=== PATIENT | male | born 1955 | race Caucasian/White ===

== ENCOUNTER 2016-03-16 21:49 | Emergency (ER) | payer BC ==
[~2016-03-16] VITALS: Ht 182.9 cm; Wt 111.8 kg
[2016-03-16 21:59] VITALS: TEMP 36.5; Ht 182.9 cm; Wt 111.8 kg
[2016-03-16] MEDS ORDERED: SODIUM CHLORIDE 0.9% 1000ML 1,000 ML IV STA (22:21)
[2016-03-16] MEDS ORDERED: SODIUM CHLORIDE 0.9% 500ML 500 ML IV STA (22:21)
[2016-03-16] MEDS ORDERED: ONDANSETRON INJ 2 MG/ML 2 ML VIAL IV STA (22:21)
[2016-03-16] MEDS ORDERED: MoRPHine SULFATE 4 MG/ML 1 ML CARP\\VIAL IV STA (22:21)
[2016-03-16] MEDS ORDERED: OPTIRAY 320 IV PRN (22:30)
[2016-03-16 22:53] LABS: ISTAT CREATININE 0.9 mg/dl (0.6-1.3); ISTAT HEMOGLOBIN 13.9 g/dl (14.0-18.0); ISTAT IONIZED CALCIUM 1.18 mmol/l (1.12-1.32)
--- NOTE | 2016-03-16 22:54 | DIAGNOSTIC IMAGING REPORT ---
CHEST ONE VIEW PORTABLE CLINICAL HISTORY: Atypical chest pain COMPARISON STUDY: No previous studies for comparison. FINDINGS: The heart is borderline enlarged. There is no failure. There is no focal pulmonary consolidation. There are no pleural effusions.[ IMPRESSION: No active disease in the chest. Electronically signed by: Everardo Powell M.D. 03/16/2016 10:52 PM Dictated Date/Time: 03/16/2016 10:51 PM
[2016-03-16 23:10] LABS: BASO % 0.2 %; BASO ABS # 0.03 K/uL (0-0.2); COMPLETE YES; EOS % 2.6 %; IG% 0.2 %; LYMPH % 17.1 %; LYMPH ABS # 2.19 K/uL (1.2-3.4); MEAN CELL VOLUME 88.1 fL (80-100); MEAN CORPUSCULAR HEMOGLOBIN 30.8 pg (25-34); MEAN PLATELET VOLUME 9.6 fL (7.4-10.4); NEUT % 73.9 %; PLATELET COUNT 244 K/uL (130-400); RED BLOOD COUNT 4.54 M/uL (4.7-6.1); WHITE BLOOD COUNT 12.79 K/uL (4.8-10.8)
[2016-03-16] MEDS ORDERED: ALLO100T PO (23:13)
[2016-03-16] MEDS ORDERED: GLC/500 PO (23:14)
[2016-03-16] MEDS ORDERED: SIMV20TA2 PO (23:14)
[2016-03-16 23:25] LABS: ALT/SGPT 26 U/L (12-78); AST/SGOT 11 U/L (15-37); BLOOD UREA NITROGEN 15 mg/dl (7-18); BUN/CREATININE RATIO 14.9 (10-20); CALCIUM 8.7 mg/dl (8.5-10.1); CARBON DIOXIDE 26 mmol/L (21-32); CHLORIDE 104 mmol/L (98-107); GLUCOSE 159 mg/dl (70-99); POTASSIUM 3.9 mmol/L (3.5-5.1); SODIUM 140 mmol/L (136-145)
[2016-03-16 23:27] VITALS: O2SAT 96
[2016-03-16 23:30] LABS: ALKALINE PHOSPHATASE 43 U/L (45-117); CKMB/CK RATIO 1.2 (0-3.0)
[2016-03-16 23:31] LABS: INR 0.9 (0.9-1.1)
--- NOTE | 2016-03-16 23:53 | DIAGNOSTIC IMAGING REPORT ---
CT SCAN OF THE ABDOMEN AND PELVIS WITH IV CONTRAST CLINICAL HISTORY: Generalized abdominal pain status post colonoscopy. COMPARISON STUDY: No priors. TECHNIQUE: Following the IV administration of 116 cc of Optiray 320, CT scan of the abdomen and pelvis is performed from the lung bases to the proximal femora. Images are reviewed in the axial, sagittal, and coronal planes. IV contrast was administered without complication. Automated dose control exposure was utilized. CT DOSE: 818.53 mGy.cm FINDINGS: Lung bases: The heart is top normal in size and without pericardial effusion. There are scattered coronary artery calcifications. The lung bases are clear. Liver: The contrast-enhanced liver is normal in size, contour, and attenuation. There is no intrahepatic biliary ductal dilatation. The hepatic veins and portal veins are patent. Gallbladder: Calcified gallstones are identified. The gallbladder is otherwise normal in appearance. Spleen: Normal in size and attenuation. Pancreas: Unremarkable. Adrenal glands: Unremarkable. Kidneys: The contrast enhanced kidneys are normal in size and without hydronephrosis. The kidneys enhance symmetrically. Mild cortical scarring is present in the upper pole the right kidney. Abdominal vasculature: The abdominal aorta is normal in course and caliber. Bowel: The small bowel and colon are normal in course and caliber. There is mild to moderate colonic fecal retention. There is moderate to advanced diverticulosis of left colon. There is mild wall thickening and pericolonic infiltration seen involving the distal descending and sigmoid colon. The appearance could represent mild diverticulitis or possibly colitis. There is no evidence of abscess. Prominent pericolonic lymph nodes are seen adjacent to the sigmoid and measure up to 9 mm. The appendix is not identified and reported surgically absent. Peritoneum: There is no intraperitoneal free air or abdominal ascites. Lymphadenopathy: None. Pelvic viscera: The bladder is distended but grossly unremarkable. The prostate and seminal vesicles are normal as visualized. There are small bilateral fat-containing inguinal hernias. Skeletal structures: No lytic or blastic lesions are seen. IMPRESSION: 1. There is mild wall thickening and pericolonic infiltration seen involving the distal descending and sigmoid colon. Although there is significant diverticular disease involving the left colon, a nonspecific colitis is considered more likely due to the length of involvement. Mild acute diverticulitis is the top differential consideration. 2. There is no intraperitoneal free air or evidence of abscess. 3. Cholelithiasis. 4. Additional changes as above. Electronically signed by: Stuart Robles M.D. 03/16/2016 11:51 PM Dictated Date/Time: 03/16/2016 11:43 PM
[2016-03-17] MEDS ORDERED: CIPROFLOXACIN 400MG / 200ML D5W IV STA (00:55)
[2016-03-17] MEDS ORDERED: METRONIDAZOLE 500MG / 100ML NSS IV STA (00:55)
[2016-03-17] MEDS ORDERED: METRONIDAZOLE 250 MG TAB PO STA (02:14)
[2016-03-17] MEDS ORDERED: CIPROFLOXACIN 500MG HOME PACK PO ONE (02:15)
[2016-03-17] MEDS ORDERED: ONDANSETRON HOME PACK 4MG OD TAB PO ONE (02:15)
[2016-03-17] MEDS ORDERED: OXYCODONE IR HOME PACK PO ONE (02:15)
[2016-03-17] MEDS ORDERED: METR-163 PO (02:17)
[2016-03-17] MEDS ORDERED: CIPR1TAB10 PO (02:17)
[2016-03-17 02:36] VITALS: BP 123/63; PULSE 64; O2SAT 97
--- NOTE | 2016-03-17 05:43 | EMERGENCY ROOM VISIT NOTE ---
History First contact with patient: 22:16 Chief Complaint: ABDOMINAL PAIN Stated Complaint: SEVERE ABD PAIN, BLOATING, GAS History of Present Illness The patient is a 61 year old male who presents to the Emergency Room with complaints of nausea, heartburn, bloating and abdominal pain since 7 PM tonight. Patient colonoscopy this morning at 8:[address] Joy. He had a small polyp removed. This is routine health screening remained. Last endoscopy was 10 years ago and was normal. Colonoscopy did show diverticulosis. Patient describes the pain as bloating, ranging in severity and at 10 throughout the lower abdomen. Patient states earlier he had epigastric discomfort but this is now resolved. Patient denies chest pain, dyspnea, fever, chills, vomiting, black or blood in his stool. He did have one bowel movement today that was normal in color. No history GI bleeding in the past. Review of Systems See HPI for pertinent positives & negatives. A total of 10 systems reviewed and were otherwise negative. Past Medical/Surgical History Appendectomy, gout, hyperlipidemia Social History Smoking Status: Never Smoker Smokeless Tobacco Use: No Alcohol Use: occasionally Drug Use: none Marital Status: Housing Status: lives with family Current/Historical Medications Scheduled Allopurinol (Zyloprim), 100 MG PO DAILY Ciprofloxacin Hcl (Cipro), 500 MG PO BID Metformin Hcl (Glucophage), 500 MG PO BID Metronidazole (Flagyl), 500 MG PO TID Simvastatin (Zocor), 20 MG PO QPM Allergies Coded Allergies: No Known Allergies (Verified , 03/16/16) Physical Exam Vital Signs Date Time Temp Pulse Resp B/P Pulse Ox O2 Delivery O2 Flow Rate FiO2 03/17/16 02:36 64 18 123/63 97 03/17/16 02:35 64 18 123/63 97 Room Air 03/17/16 01:06 70 18 127/68 96 Room Air 03/16/16 23:27 96 Room Air 03/16/16 23:25 75 16 124/75 97 Room Air 03/16/16 21:59 36.5 66 18 144/89 97 Room Air Physical Exam VITALS: Vitals are noted on the nurse's note and reviewed by myself. Vital signs stable. GENERAL: Pleasant male, in no acute distress, nondiaphoretic, well-developed well-nourished. SKIN: The skin was without rashes, erythema, edema, or bruising. There is no tenting of the skin. Capillary reflex less than 2 seconds. HEAD: Normocephalic atraumatic. EARS: External auditory canals clear, tympanic membranes pearly branch without erythema or effusion bilaterally. EYES: Pupils equal round and reactive to light and accommodation. Conjunctivae without injection, sclerae without icterus. Extraocular movements intact. NOSE: Patent, turbinates without inflammation or discharge. MOUTH: Mucous membranes moist. Pharynx without erythema or exudate. Uvula midline. Airway patent. Tongue does not deviate. NECK: Supple without nuchal rigidity. No lymphadenopathy. No thyromegaly. Cervical spine is nontender. No JVD. HEART: Regular rate and rhythm LUNGS: Clear to auscultation bilaterally without wheezes, rales or rhonchi. No dullness to percussion. No retractions or accessory muscle use. ABDOMEN: Positive bowel sounds x 4. Normal tympanic percussion. Soft, tender to palpation lower abdomen, no CVA tenderness, without masses or organomegaly. Busby sign negative. No guarding or rebound tenderness. MUSCULOSKELETAL: No muscle atrophy, erythema, or edema noted. NEURO: Patient was alert and oriented to person place and time. Normal sensation to light and sharp touch. No focal neurological deficits. Medical Decision & Procedures Laboratory Results 03/16/16 22:34 Red Blood Count 4.54, Mean Corpuscular Volume 88.1, Mean Corpuscular Hemoglobin 30.8, Mean Corpuscular Hemoglobin Concent 35.0, Mean Platelet Volume 9.6, Neutrophils (%) (Auto) 73.9, Lymphocytes (%) (Auto) 17.1, Monocytes (%) (Auto) 6.0, Eosinophils (%) (Auto) 2.6, Basophils (%) (Auto) 0.2, Neutrophils # (Auto) 9.44, Lymphocytes # (Auto) 2.19, Monocytes # (Auto) 0.77, Eosinophils # (Auto) 0.33, Basophils # (Auto) 0.03 03/16/16 22:34 Test 03/16/16 22:34 03/16/16 22:37 White Blood Count 12.79 K/uL (4.8-10.8) Red Blood Count 4.54 M/uL (4.7-6.1) Hemoglobin 14.0 g/dL (14.0-18.0) Hematocrit 40.0 % (42-52) Mean Corpuscular Volume 88.1 fL (80-100) Mean Corpuscular Hemoglobin 30.8 pg (25-34) Mean Corpuscular Hemoglobin Concent 35.0 g/dl (32-36) Platelet Count 244 K/uL (130-400) Mean Platelet Volume 9.6 fL (7.4-10.4) Neutrophils (%) (Auto) 73.9 % Lymphocytes (%) (Auto) 17.1 % Monocytes (%) (Auto) 6.0 % Eosinophils (%) (Auto) 2.6 % Basophils (%) (Auto) 0.2 % Neutrophils # (Auto) 9.44 K/uL (1.4-6.5) Lymphocytes # (Auto) 2.19 K/uL (1.2-3.4) Monocytes # (Auto) 0.77 K/uL (0.11-0.59) Eosinophils # (Auto) 0.33 K/uL (0-0.5) Basophils # (Auto) 0.03 K/uL (0-0.2) RDW Standard Deviation 42.4 fL (36.4-46.3) RDW Coefficient of Variation 13.1 % (11.5-14.5) Immature Granulocyte % (Auto) 0.2 % Immature Granulocyte # (Auto) 0.03 K/uL (0.00-0.02) Prothrombin Time 10.0 SECONDS (9.0-12.0) Prothromb Time International Ratio 0.9 (0.9-1.1) Activated Partial Thromboplast Time 27.1 SECONDS (21.0-31.0) Partial Thromboplastin Ratio 1.0 Est Creatinine Clear Calc Drug Dose 100.2 ml/min Estimated GFR () 93.7 Estimated GFR (Non- 80.9 BUN/Creatinine Ratio 14.9 (10-20) Bedside Lactic Acid Venous 0.65 mmol/L (0.90-1.70) Calcium Level 8.7 mg/dl (8.5-10.1) Total Bilirubin 0.4 mg/dl (0.2-1) Direct Bilirubin 0.1 mg/dl (0-0.2) Aspartate Amino Transf (AST/SGOT) 11 U/L (15-37) Alanine Aminotransferase (ALT/SGPT) 26 U/L (12-78) Alkaline Phosphatase 43 U/L (45-117) Total Creatine Kinase 97 U/L (39-308) Creatine Kinase MB 1.2 ng/ml (0.5-3.6) Creatine Kinase MB Ratio 1.2 (0-3.0) Troponin I < 0.015 ng/ml (0-0.045) Total Protein 7.3 gm/dl (6.4-8.2) Albumin 4.1 gm/dl (3.4-5.0) Lipase 169 U/L (73-393) Bedside Hemoglobin 13.9 g/dl (14.0-18.0) Bedside Hematocrit 41 % (42-52) Bedside Sodium 138 mEq/L (135-144) Bedside Potassium 3.8 mEq/L (3.3-5.0) Bedside Chloride 99 mEq/L (101-112) Bedside Total CO2 23 mEq/l (24-31) Anion Gap 20.0 mmol/L (16-25) Bedside Blood Urea Nitrogen 15 mg/dl (7-18) Bedside Creatinine 0.9 mg/dl (0.6-1.3) Bedside Glucose (other) 158 mg/dl (70-99) Bedside Ionized Calcium (Tereso) 1.18 mmol/l (1.12-1.32) Medications Administered Medications (Trade) Dose Ordered Sig/Simon Route Start Time Stop Time Status Last Admin Dose Admin Morphine Sulfate (MoRPHine SULFATE INJ) 4 mg NOW STAT IV 03/16/16 22:21 03/16/16 22:23 DC 03/16/16 23:22 4 MG Ondansetron HCl 4 mg 4 mg NOW STAT IV 03/16/16 22:21 03/16/16 22:23 DC 03/16/16 23:21 4 MG Sodium Chloride 1,000 ml @ 125 mls/hr Q8H STAT IV 03/16/16 22:21 03/17/16 03:20 DC 03/16/16 23:22 125 MLS/HR Sodium Chloride (Nss 500ml) 500 ml @ 999 mls/hr Q31M STAT IV 03/16/16 22:21 03/16/16 22:51 DC 03/16/16 23:22 999 MLS/HR Ciprofloxacin/ Dextrose (Cipro / D5w) 400 mg NOW STAT IV 03/17/16 00:55 03/17/16 00:56 DC 03/17/16 01:01 400 MG Metronidazole (Flagyl / Nss) 500 mg NOW STAT IV 03/17/16 00:55 03/17/16 00:56 DC 03/17/16 01:01 500 MG Ondansetron HCl (ZOFRAN ODT 4MG Home Pack) 1 homepack UD ONCE PO 03/17/16 02:15 03/17/16 02:16 DC 03/17/16 02:32 1 HOMEPACK Ciprofloxacin (Cipro 500MG Home Pack) 1 homepack UD ONCE PO 03/17/16 02:15 03/17/16 02:16 DC 03/17/16 02:32 1 HOMEPACK Metronidazole (Flagyl Tab) 1,500 mg NOW STAT PO 03/17/16 02:14 03/17/16 02:16 DC 03/17/16 02:32 1,500 MG Oxycodone HCl (Roxicodone Immediate Rel 5MG Home Pack) 1 homepack UD ONCE PO 03/17/16 02:15 03/17/16 02:16 DC 03/17/16 02:32 1 HOMEPACK ED Course Prior records/ancillary studies reviewed. Triage Nursing notes reviewed. Additional history obtained from family. The patient's history was concerning for abdominal pain. Differential diagnosis: Etiologies such as complication of colonoscopy, diverticulitis, PUD, biliary pathology, UTI, pancreatitis, obstruction, mesenteric ischemia, aortic pathology , infections, inflammatory bowel disease, renal colic, as well as others were entertained. Physical examination findings: As above. ER treatment provided: Morphine, Zofran, IV fluids On reassessment the patient felt better. Diagnostics interpreted by me: ECG: Normal sinus, normal intervals, no acute ST-T wave changes. Impression normal sinus rhythm interpreted by myself The labs revealed leukocytosis. Negative troponin Imaging studies: Chest x-ray with no acute consolidation or free air per my interpretation [~ rep ct add3]] CT SCAN OF THE ABDOMEN AND PELVIS WITH IV CONTRAST CLINICAL HISTORY: Generalized abdominal pain status post colonoscopy. COMPARISON STUDY: No priors. TECHNIQUE: Following the IV administration of 116 cc of Optiray 320, CT scan of the abdomen and pelvis is performed from the lung bases to the proximal femora. Images are reviewed in the axial, sagittal, and coronal planes. IV contrast was administered without complication. Automated dose control exposure was utilized. CT DOSE: 818.53 mGy.cm FINDINGS: Lung bases: The heart is top normal in size and without pericardial effusion. There are scattered coronary artery calcifications. The lung bases are clear. Liver: The contrast-enhanced liver is normal in size, contour, and attenuation. There is no intrahepatic biliary ductal dilatation. The hepatic veins and portal veins are patent. Gallbladder: Calcified gallstones are identified. The gallbladder is otherwise normal in appearance. Spleen: Normal in size and attenuation. Pancreas: Unremarkable. Adrenal glands: Unremarkable. Kidneys: The contrast enhanced kidneys are normal in size and without hydronephrosis. The kidneys enhance symmetrically. Mild cortical scarring is present in the upper pole the right kidney. Abdominal vasculature: The abdominal aorta is normal in course and caliber. Bowel: The small bowel and colon are normal in course and caliber. There is mild to moderate colonic fecal retention. There is moderate to advanced diverticulosis of left colon. There is mild wall thickening and pericolonic infiltration seen involving the distal descending and sigmoid colon. The appearance could represent mild diverticulitis or possibly colitis. There is no evidence of abscess. Prominent pericolonic lymph nodes are seen adjacent to the sigmoid and measure up to 9 mm. The appendix is not identified and reported surgically absent. Peritoneum: There is no intraperitoneal free air or abdominal ascites. Lymphadenopathy: None. Pelvic viscera: The bladder is distended but grossly unremarkable. The prostate and seminal vesicles are normal as visualized. There are small bilateral fat-containing inguinal hernias. Skeletal structures: No lytic or blastic lesions are seen. IMPRESSION: 1. There is mild wall thickening and pericolonic infiltration seen involving the distal descending and sigmoid colon. Although there is significant diverticular disease involving the left colon, a nonspecific colitis is considered more likely due to the length of involvement. Mild acute diverticulitis is the top differential consideration. 2. There is no intraperitoneal free air or evidence of abscess. 3. Cholelithiasis. 4. Additional changes as above. Electronically signed by: Stuart Robles M.D. 03/16/2016 11:51 PM Exam and history seem consistent with diverticulitis. Patient was started on antibiotics. He is well-appearing. He requested to leave. I felt this is reasonable. He had no free air. He was advised to follow-up family care in a day or 2 or here in the ER sooner for fevers, abdominal pain, vomiting, worsening signs or symptoms or as needed. By the evaluation outlined above emergent etiologies such as appendicitis, PUD , biliary pathology, UTI, pancreatitis, obstruction, mesenteric ischemia, aortic pathology, infections, inflammatory bowel disease, renal colic, as well as others were deemed relatively unlikely. The pt informed about the findings as listed above. All questions were answered and pleased with the treatment. Return instructions were outlined and the patient was discharged in stable condition. Outpatient prescription management: Cipro Flagyl Referral: The patient was referred back to their primary care physician for follow-up in 2 to 3 days for a recheck of the current condition. Case reviewed with my attending. Medical Decision As above Impression Primary Impression: Diverticulitis Departure Information Prescriptions Metronidazole (Flagyl) 500 Mg Tab 500 MG PO TID for 13 Days, #39 TAB Prov: Julieta Bernal PA-C 03/17/16 Ciprofloxacin Hcl (CIPRO) 500 Mg Tab 500 MG PO BID for 13 Days, #26 TAB Prov: Julieta Bernal PA-C 03/17/16 Referrals Tom Meek M.D. (PCP) Patient Instructions My [facility] Problem Qualifiers Primary Impression: Diverticulitis Diverticulitis site: large intestine Diverticulitis bleeding: without bleeding Diverticulitis complication: without perforation or abscess Qualified Codes: K57.32 - Diverticulitis of large intestine without perforation or abscess without bleeding
== END 2016-03-17 02:36 | disposition home or self-care (01) ==
LOC: C.EDB 21:52 → C.EDA 03-17 02:36
DX: K57.92 Diverticulitis of intestine, part unspecified, without perforation or abscess without bleeding (principal)